=== PATIENT | female | born 1990 | race African-American/Black ===

== ENCOUNTER 2017-05-10 20:15 | Emergency (ER) | payer MEDICAID ==
[~2017-05-10] VITALS: Ht 162.6 cm; Wt 61.9 kg
[~2017-05-10 20:15] MED LIST: DESO1TAB35 PO; ONDA4TAB10 PO
[2017-05-10] MEDS ORDERED: METOCLOPRAMIDE 5 MG/ML, 2ML ONE (21:17)
[2017-05-10] MEDS ORDERED: DIPHENHYDRAMINE 50 MG/ML, 1ML ONE (21:17)
[2017-05-10] MEDS ORDERED: KETOROLAC 30 MG/1 ML ONE (21:17)
[2017-05-10] MEDS ORDERED: ICN DIPHENHYDRAMINE 10 MG/ML INJ.DIL IV ONE (21:30)
[2017-05-10] MEDS ORDERED: SODIUM CHLORIDE 0.9% 1,000ML IVBOLUS ONE (21:30)
[2017-05-10] MEDS ORDERED: SODIUM CHLORIDE FLUSH 10ML SYR IVF ONE (21:30)
[2017-05-10] MEDS ORDERED: METOCLOPRAMIDE 5 MG/ML, 2ML IVPush ONE (21:30)
[2017-05-10] MEDS ORDERED: KETOROLAC 30 MG/1 ML IVPush ONE (21:30)
[2017-05-10 22:20] VITALS: BP 120/65
== END 2017-05-10 22:22 | disposition home or self-care (01) ==
LOC: ED 21:26
DX: G43.909 Migraine, unspecified, not intractable, without status migrainosus (principal)
CPT/HCPCS: 96361; 96374; 96375; 99285; J1885; J2765; J7030

== ENCOUNTER 2018-06-09 17:34 | Inpatient (IN) | payer MEDICAID ==
[~2018-06-09] VITALS: Ht 162.6 cm; Wt 78.0 kg
[~2018-06-09 17:34] MED LIST changes: -DESO1TAB35 PO; +DESO1TAB72 PO
[2018-06-10] MEDS ORDERED: D5%-LACTATED RINGERS 1,000 ML IV SCH (22:28)
[2018-06-10] MEDS ORDERED: OXYTOCIN 30U/ 0.9% NaCL 500ML 500 ML IV ONE (22:28)
[2018-06-10] MEDS ORDERED: OXYTOCIN 30U/ 0.9% NaCL 500ML 500 ML IV PRN (22:28)
[2018-06-10] MEDS ORDERED: ALUMINUM/MAG/SIMETHICONE 30 ML UDC PO PRN (22:30)
[2018-06-10] MEDS ORDERED: CALCIUM CARBONATE 500 MG TAB.CHEW PO PRN (22:30)
[2018-06-10] MEDS ORDERED: TERBUTALINE 1 MG/ML, 1ML IVPush PRN ×2 (22:30)
[2018-06-10] MEDS ORDERED: TERBUTALINE 1 MG/ML, 1ML SQ PRN (22:30)
[2018-06-10] MEDS ORDERED: ONDANSETRON 2MG/ML, 2ML IVPush PRN (22:30)
[2018-06-10] MEDS ORDERED: FENTANYL PF 100 MCG/2ML IV PRN (22:30)
[2018-06-10] MEDS ORDERED: SODIUM CITRATE/CITRIC ACID 30 ML UDC PO PRN (22:30)
[2018-06-10] MEDS ORDERED: METOCLOPRAMIDE 5 MG/ML, 2ML IVPush PRN (22:30)
[2018-06-10 23:11] LABS: BASOPHILS # (AUTO) 0.03 x10^3/uL (0-0.1); BASOPHILS % (AUTO) 0 % (0-1); EOSINOPHILS # (AUTO) 0.04 x10^3/uL (0-0.4); EOSINOPHILS % (AUTO) 1 % (1-7); LYMPHOCYTES # (AUTO) 1.42 x10^3/uL (1-3.4); LYMPHOCYTES % (AUTO) 18 % (22-44); MD NO; MEAN CORPUSCULAR VOLUME 94.3 fL (80-100); MEAN PLATELET VOLUME 9.6 fL (7.4-10.4); MONOCYTES # (AUTO) 0.82 x10^3/uL (0.2-0.8); MONOCYTES % (AUTO) 10 % (2-9); NEUTROPHILS # (AUTO) 5.83 x10^3/uL (1.8-6.8); NEUTROPHILS % (AUTO) 72 % (42-75); PLATELET COUNT 203 x10^3/uL (130-400); RED BLOOD COUNT 3.92 x10^6/uL (3.82-5.3)
[2018-06-11] MEDS: FENTANYL PF 100 MCG/2ML IVPush PRN ×4 (03:02→09:30)
[2018-06-11] MEDS ORDERED: FENTANYL PF 100 MCG/2ML ONE ×3 (07:02→09:27)
[2018-06-11] MEDS ORDERED: MISOPROSTOL 200 MCG TABLET PR PRN (08:30)
[2018-06-11] MEDS ORDERED: OXYcodone/APAP 5/325MG TABLET PO PRN (08:30)
[2018-06-11] MEDS ORDERED: ACETAMINOPHEN 325 MG TABLET PO PRN (08:30)
[2018-06-11] MEDS ORDERED: ONDANSETRON 2MG/ML, 2ML IV PRN (08:30)
[2018-06-11] MEDS: PRENATAL VIT/IRON/FA 1 EACH TABLET PO SCH (09:00)
[2018-06-11] MEDS ORDERED: FENTANYL/BUPIV./NS/PF 250 ML EPIDCONT SCH ×2 (09:34→11:07)
[2018-06-11] MEDS ORDERED: FENTANYL PF 500 MCG, BUPIVACAINE/PF 0.5%, 30ML 62.5 ML in SODIUM CHLORIDE 0.9% 177.5 ML EPIDCONT SCH (10:00)
[2018-06-11] MEDS: LACTATED RINGERS 1,000 ML IV SCH ×2 (10:11→11:44)
[2018-06-11] MEDS ORDERED: LACTATED RINGERS 1,000 ML IV SCH (11:07)
[2018-06-11] MEDS ORDERED: EPHEDRINE 50 MG/ML, 1ML IVPush PRN (11:30)
[2018-06-11] MEDS ORDERED: NALOXONE 0.4 MG/ML, 1ML IVPush PRN (11:30)
[2018-06-11] MEDS ORDERED: ONDANSETRON 2MG/ML, 2ML IVPush PRN (11:30)
[2018-06-11] MEDS ORDERED: LACTATED RINGERS 1,000 ML IVBOLUS PRN (11:30)
[2018-06-11] MEDS ORDERED: DIPHENHYDRAMINE 50 MG/ML, 1ML IVPush PRN (11:30)
[2018-06-11] MEDS ORDERED: ACETAMINOPHEN 325 MG TABLET ONE (17:45)
[2018-06-11] MEDS: OXYTOCIN 30U/ 0.9% NaCL 500ML 500 ML IV SCH ×2 (18:17→19:09)
[2018-06-11] MEDS ORDERED: OXYTOCIN 30U/ 0.9% NaCL 500ML 500 ML ONE (19:03)
[2018-06-11 20:00] VITALS: BP 121/63
[2018-06-11] MEDS: IBUPROFEN 600 MG TABLET PO PRN (21:07)
[2018-06-12 00:02] VITALS: BP 95/57
[2018-06-12 03:58] VITALS: BP 107/67
[2018-06-12] MEDS: IBUPROFEN 600 MG TABLET PO PRN ×2 (04:03→16:39)
[2018-06-12] MEDS: OXYTOCIN 30U/ 0.9% NaCL 500ML 500 ML IV SCH (04:17)
[2018-06-12 05:42] LABS: BASOPHILS # (AUTO) 0.03 x10^3/uL (0-0.1); BASOPHILS % (AUTO) 0 % (0-1); EOSINOPHILS # (AUTO) 0.03 x10^3/uL (0-0.4); EOSINOPHILS % (AUTO) 0 % (1-7); LYMPHOCYTES # (AUTO) 1.65 x10^3/uL (1-3.4); LYMPHOCYTES % (AUTO) 11 % (22-44); MD NO; MEAN CORPUSCULAR HGB CONC 33.6 g/dL (32.4-35.8); MEAN CORPUSCULAR VOLUME 95.1 fL (80-100); MEAN PLATELET VOLUME 9.7 fL (7.4-10.4); MONOCYTES # (AUTO) 1.02 x10^3/uL (0.2-0.8); MONOCYTES % (AUTO) 7 % (2-9); NEUTROPHILS # (AUTO) 11.83 x10^3/uL (1.8-6.8); NEUTROPHILS % (AUTO) 81 % (42-75); PLATELET COUNT 173 x10^3/uL (130-400); RED BLOOD COUNT 3.79 x10^6/uL (3.82-5.3)
[2018-06-12 07:20] VITALS: BP 101/62
[2018-06-12] MEDS: OXYcodone/APAP 5/325MG TABLET PO PRN ×2 (07:55→16:39)
[2018-06-12] MEDS: PRENATAL VIT/IRON/FA 1 EACH TABLET PO SCH (09:00)
[2018-06-12] MEDS: DOCUSATE 100 MG CAPSULE PO PRN (09:00)
[2018-06-12 11:55] VITALS: BP 113/70
[2018-06-12 16:40] VITALS: BP 107/64
[2018-06-12 20:10] VITALS: BP 99/64
[2018-06-13] MEDS: IBUPROFEN 600 MG TABLET PO PRN ×3 (03:34→16:19)
[2018-06-13 07:40] VITALS: BP 104/69
[2018-06-13] MEDS: DOCUSATE 100 MG CAPSULE PO PRN (09:52)
[2018-06-13] MEDS: PRENATAL VIT/IRON/FA 1 EACH TABLET PO SCH (09:52)
[2018-06-13] MEDS ORDERED: IBUP-1222 PO (11:28)
== END 2018-06-13 16:40 | disposition home or self-care (01) | DRG 807 ==
LOC: LDIP 06-10 21:48 → 2NW 06-11 19:43
PROVIDERS: ADMIT Obstetrics & Gynecology; ATTEND Obstetrics & Gynecology
PROC: 10E0XZZ Delivery of Products of Conception, External Approach (ICD-10-PCS; principal; 2018-06-11)
PROC: 10907ZC Drainage of Amniotic Fluid, Therapeutic from Products of Conception, Via Natural or Artificial Opening (ICD-10-PCS; 2018-06-11)
PROC: 3E0R3BZ Introduction of Anesthetic Agent into Spinal Canal, Percutaneous Approach (ICD-10-PCS; 2018-06-11)
PROC: 00HU33Z Insertion of Infusion Device into Spinal Canal, Percutaneous Approach (ICD-10-PCS; 2018-06-11)
PROC: 3E033VJ Introduction of Other Hormone into Peripheral Vein, Percutaneous Approach (ICD-10-PCS; 2018-06-11)
PROC: 10H07YZ Insertion of Other Device into Products of Conception, Via Natural or Artificial Opening (ICD-10-PCS; 2018-06-11)
DX: O40.3XX0 Polyhydramnios, third trimester, not applicable or unspecified (principal); Z37.0 Single live birth; O77.0 Labor and delivery complicated by meconium in amniotic fluid; O76 Abnormality in fetal heart rate and rhythm complicating labor and delivery; Z3A.39 39 weeks gestation of pregnancy; Z88.1 Allergy status to other antibiotic agents; Z88.0 Allergy status to penicillin; Z88.2 Allergy status to sulfonamides
CPT/HCPCS: 36415; 82803; 85025; 86850; 86900; G0378; J3010; J3490; J2590; J7050; J7120

== ENCOUNTER 2018-06-15 12:40 | Inpatient (IN) | payer MEDICAID ==
[~2018-06-15] VITALS: Ht 162.6 cm; Wt 73.7 kg
[~2018-06-15 12:40] MED LIST changes: +IBUP-1222 PO
[2018-06-15] MEDS ORDERED: SODIUM CHLORIDE FLUSH 10ML SYR IVF ONE (13:30)
[2018-06-15] MEDS ORDERED: SODIUM CHLORIDE 0.9% 1,000ML IVBOLUS ONE ×2 (13:30→15:30)
[2018-06-15] MEDS ORDERED: ACETAMINOPHEN 500 MG TABLET ONE (13:50)
[2018-06-15 14:19] LABS: ANION GAP 14 mmol/L (5-15); CHLORIDE 102 mmol/L (98-107); CREATININE 1.11 mg/dL (0.55-1.02)
[2018-06-15 14:20] LABS: ALANINE AMINOTRANSFERASE 53 U/L (12-78); ALBUMIN 1.9 g/dL (3.4-5.0); INTERNATIONAL NORMALIZED RATIO 1.37 (0.93-1.1)
[2018-06-15 14:22] LABS: ALKALINE PHOSPHATASE 142 U/L (45-117); BILIRUBIN,TOTAL 1.8 mg/dL (0.2-1.0); TOTAL PROTEIN 6.6 g/dL (6.4-8.2)
[2018-06-15 14:23] LABS: MEAN CORPUSCULAR HGB CONC 33.8 g/dL (32.4-35.8); MEAN CORPUSCULAR VOLUME 94.6 fL (80-100); MEAN PLATELET VOLUME 9.5 fL (7.4-10.4); PLATELET COUNT 173 x10^3/uL (130-400); RED BLOOD COUNT 4.06 x10^6/uL (3.82-5.3); RED CELL DISTRIBUTION WIDTH 14.8 % (9.6-15.2)
[2018-06-15 14:45] LABS: MD YES
[2018-06-15 14:54] LABS: BAND#(MANUAL) 4.98 x10^3/uL; BANDS%(MANUAL) 20 % (0-7); MONOS% (MANUAL) 2 % (2-9); SEG#(MANUAL) 19.42 x10^3/uL (1.8-6.8); SEGS% (MANUAL) 78 % (42-75)
[2018-06-15 14:55] LABS: <PLATELET ESTIMATE> ADEQUATE; <PLT MORPHOLOGY> NORMAL PLT MORPH; <RBC MORPHOLOGY> NORMAL
[2018-06-15 15:02] LABS: MICROSCOPIC INDICATED
[2018-06-15 15:03] LABS: CULTURE INDICATED? YES
[2018-06-15] MEDS ORDERED: CEFTRIAXONE 1,000 MG ONE (15:39)
[2018-06-15] MEDS ORDERED: CEFTRIAXONE PMX 1GM/50ML 50 ML ONE (15:43)
[2018-06-15] MEDS ORDERED: CEFTRIAXONE PMX 1GM/50ML 50 ML IV ONE (16:00)
[2018-06-15] MEDS ORDERED: NS + 20MEQ KCL 1,000 ML IV SCH (16:32)
[2018-06-15] MEDS ORDERED: hydrALAzine 20 MG/ML, 1ML IVPush PRN (17:00)
[2018-06-15] MEDS ORDERED: LABETALOL 5MG/ML, 20ML IVPush PRN (17:00)
[2018-06-15] MEDS ORDERED: ONDANSETRON ODT 4 MG PO PRN (17:00)
[2018-06-15] MEDS ORDERED: ACETAMINOPHEN 325 MG TABLET PO PRN (17:00)
[2018-06-15] MEDS ORDERED: ONDANSETRON 2MG/ML, 2ML IVPush PRN (17:00)
[2018-06-15] MEDS ORDERED: ENOXAPARIN 40 MG/0.4 ML SQ SCH (17:30)
[2018-06-15] MEDS ORDERED: POTASSIUM CHLORIDE 20 MEQ PACKET PO SCH (18:00)
[2018-06-15 18:05] VITALS: BP 112/74
[2018-06-15] MEDS: OXYcodone IR 5MG TABLET PO PRN (18:33)
[2018-06-15] MEDS: IBUPROFEN 600 MG TABLET PO PRN (18:33)
[2018-06-15] MEDS: NS + 40MEQ KCL 1,000 ML IV SCH (19:37)
[2018-06-15 19:45] VITALS: BP 95/63
[2018-06-15 21:19] LABS: ANION GAP 12 mmol/L (5-15); CALCIUM 7.2 mg/dL (8.5-10.1); CHLORIDE 106 mmol/L (98-107)
[2018-06-16] MEDS: OXYcodone IR 5MG TABLET PO PRN ×4 (01:48→16:39)
[2018-06-16] MEDS: IBUPROFEN 600 MG TABLET PO PRN ×2 (01:48→11:22)
[2018-06-16] MEDS: NS + 40MEQ KCL 1,000 ML IV SCH ×2 (01:48→09:00)
[2018-06-16 01:51] VITALS: BP 107/69
[2018-06-16 05:28] LABS: MEAN CORPUSCULAR HGB CONC 33.6 g/dL (32.4-35.8); MEAN CORPUSCULAR VOLUME 95.4 fL (80-100); MEAN PLATELET VOLUME 9.5 fL (7.4-10.4); PLATELET COUNT 154 x10^3/uL (130-400); RED BLOOD COUNT 3.45 x10^6/uL (3.82-5.3); RED CELL DISTRIBUTION WIDTH 15.1 % (9.6-15.2)
[2018-06-16 05:54] LABS: CALCIUM 7.4 mg/dL (8.5-10.1); CHLORIDE 108 mmol/L (98-107)
[2018-06-16 05:55] LABS: MD YES
[2018-06-16 05:56] LABS: BANDS%(MANUAL) 33 % (0-7); LYMPH#(MANUAL) 0.58 x10^3/uL (1-3.4); LYMPHS% (MANUAL) 3 % (22-44); SEG#(MANUAL) 12.42 x10^3/uL (1.8-6.8); SEGS% (MANUAL) 64 % (42-75)
[2018-06-16 05:58] LABS: ANION GAP 10 mmol/L (5-15); CREATININE 0.74 mg/dL (0.55-1.02)
[2018-06-16 05:59] LABS: <RBC MORPHOLOGY> NORMAL; TOXIC GRAN 1+
[2018-06-16 06:00] LABS: <PLATELET ESTIMATE> ADEQUATE; <PLT MORPHOLOGY> NORMAL PLT MORPH
[2018-06-16 06:11] LABS: ALBUMIN 1.6 g/dL (3.4-5.0)
[2018-06-16 06:12] LABS: ALKALINE PHOSPHATASE 115 U/L (45-117); BILIRUBIN,TOTAL 1.3 mg/dL (0.2-1.0); TOTAL PROTEIN 5.5 g/dL (6.4-8.2)
[2018-06-16 06:13] LABS: ALANINE AMINOTRANSFERASE 44 U/L (12-78)
[2018-06-16 07:59] VITALS: BP 98/61
[2018-06-16] MEDS ORDERED: CEFTRIAXONE PMX 1GM/50ML 50 ML IV SCH (09:00)
[2018-06-16] MEDS ORDERED: NS + 20MEQ KCL 1,000 ML IV SCH (09:00)
[2018-06-16] MEDS ORDERED: CEFD300C37 PO (11:38)
[2018-06-16 12:20] VITALS: BP 120/76
[2018-06-16 16:41] VITALS: BP 110/74
== END 2018-06-16 18:30 | disposition home or self-care (01) | DRG 776 ==
LOC: ED 16:03 → EDIP 16:31 → 3NE 17:06 → 2NW 17:50
PROVIDERS: ADMIT Family Medicine; ATTEND Obstetrics & Gynecology
PROC: 0T9B70Z Drainage of Bladder with Drainage Device, Via Natural or Artificial Opening (ICD-10-PCS; principal; 2018-06-15)
DX: O90.4 Postpartum acute kidney failure (principal); N10 Acute pyelonephritis; O86.21 Infection of kidney following delivery; R17 Unspecified jaundice; E86.0 Dehydration; E87.6 Hypokalemia; F53.0 Postpartum depression; O99.285 Endocrine, nutritional and metabolic diseases complicating the puerperium; Z88.0 Allergy status to penicillin; Z88.2 Allergy status to sulfonamides; Z88.8 Allergy status to other drugs, medicaments and biological substances
CPT/HCPCS: 36415; 74022; 76700; 76856; 80048; 80053; 81001; 83605; 83690; 85025; 85610; 85730; 87040; 87077; 87081; 87086; 87147; 87186; 87880; 96361; 96374; G0378; J0696; J1650; J3480; J7030

== ENCOUNTER 2018-11-14 12:05 | Emergency (ER) | payer MEDICAID ==
[~2018-11-14] VITALS: Ht 162.6 cm; Wt 62.6 kg
[~2018-11-14 12:05] MED LIST changes: +CEFD300C37 PO
[2018-11-14] MEDS ORDERED: KETOROLAC 30 MG/1 ML ONE (13:09)
[2018-11-14] MEDS ORDERED: DEXAMETHASONE 4 MG TABLET ONE (13:09)
[2018-11-14] MEDS ORDERED: METOCLOPRAMIDE 10MG TABLET ONE (13:10)
[2018-11-14] MEDS ORDERED: DIPHENHYDRAMINE 25 MG CAPSULE ONE (13:21)
--- NOTE | 2018-11-14 13:26 | NUR ---
MEDICATED PER ORDERS FOR [facility]
[2018-11-14] MEDS ORDERED: KETOROLAC 30 MG/1 ML IM ONE (13:30)
[2018-11-14] MEDS ORDERED: DEXAMETHASONE 4 MG TABLET PO ONE (13:30)
[2018-11-14] MEDS ORDERED: DIPHENHYDRAMINE 25 MG CAPSULE PO ONE (13:30)
[2018-11-14] MEDS ORDERED: METOCLOPRAMIDE 10MG TABLET PO ONE (13:30)
[2018-11-14 14:13] VITALS: BP 116/72
== END 2018-11-14 14:54 | disposition home or self-care (01) ==
LOC: ED 14:10
DX: G43.011 Migraine without aura, intractable, with status migrainosus (principal); R11.0 Nausea
CPT/HCPCS: 96372; 99284; J1885; Q0163

== ENCOUNTER 2019-03-02 08:06 | Emergency (ER) | payer SELFPAY ==
[~2019-03-02] VITALS: Ht 162.6 cm; Wt 58.5 kg
[2019-03-02 08:07] VITALS: BP 111/72
--- NOTE | 2019-03-02 08:18 | NUR ---
PT HAS CO OF HEADACHE SINCE THURSDAY W NO RELIEF.
[2019-03-02] MEDS ORDERED: SODIUM CHLORIDE FLUSH 10ML SYR IVF ONE (08:30)
[2019-03-02] MEDS ORDERED: KETOROLAC 30 MG/1 ML IVPush ONE (08:30)
[2019-03-02] MEDS ORDERED: DIPHENHYDRAMINE 50 MG/ML, 1ML IVPush ONE (08:30)
[2019-03-02] MEDS ORDERED: METOCLOPRAMIDE 5 MG/ML, 2ML IVPush ONE (08:30)
[2019-03-02] MEDS ORDERED: DIPHENHYDRAMINE 50 MG/ML, 1ML ONE (08:35)
[2019-03-02] MEDS ORDERED: METOCLOPRAMIDE 5 MG/ML, 2ML ONE (08:35)
[2019-03-02] MEDS ORDERED: KETOROLAC 30 MG/1 ML ONE (08:35)
--- NOTE | 2019-03-02 09:16 | NUR ---
MEDICATED PER ORDERS. DIM LIGHTS AND DECREASED NOISE
--- NOTE | 2019-03-02 09:44 | NUR ---
PT STATES "HEADACHE IS WAY BETTER AFTER MEDICATIONS"
--- NOTE | 2019-03-02 10:49 | NUR ---
Patient given discharge instructions and they have confirmed that they understand the instructions. Patient ambulatory with steady gait.
== END 2019-03-02 10:51 | disposition home or self-care (01) ==
LOC: ED 09:25
DX: G43.009 Migraine without aura, not intractable, without status migrainosus (principal); G44.209 Tension-type headache, unspecified, not intractable
CPT/HCPCS: 96374; 96375; 99283; J1200; J1885; J2765

== ENCOUNTER 2020-05-03 04:33 | Emergency (ER) | payer MEDICAID ==
[~2020-05-03] VITALS: Ht 162.6 cm; Wt 59.5 kg
[~2020-05-03 04:33] MED LIST changes: -DESO1TAB72 PO; +DESO1TAB89 PO
--- NOTE | 2020-05-03 04:45 | NUR ---
PT TO ED WITH UPPER LIP SWELLING, DENIES DIFFICULTY SWALLOWING OR BREATHING, DENIES DENTAL PAIN. REPORTS TAKING BENADRL AT 2AM TODAY. PT CONNECTED TO MONITORING, CALL LIGHT WITHIN REACH.
[2020-05-03] MEDS ORDERED: FAMOTIDINE 20 MG TABLET ONE (04:53)
[2020-05-03 04:56] VITALS: BP 108/61
[2020-05-03] MEDS ORDERED: FAMOTIDINE 20 MG TABLET PO ONE (05:00)
--- NOTE | 2020-05-03 05:29 | NUR ---
PT REPORTS NO CHANGE IN CONDITION AT THIS TIME.
== END 2020-05-03 06:25 | disposition home or self-care (01) ==
LOC: ED 06:02
DX: T78.3XXA Angioneurotic edema, initial encounter (principal); G43.909 Migraine, unspecified, not intractable, without status migrainosus; Z88.9 Allergy status to unspecified drugs, medicaments and biological substances; Z88.0 Allergy status to penicillin; Z79.899 Other long term (current) drug therapy
CPT/HCPCS: 99283; J7512